=== PATIENT | male | born 1980 | race Hispanic/Latino ===

== ENCOUNTER 2023-11-28 12:35 | Outpatient (CLI) | payer MEDICARE, MEDICAID, SELFPAY ==
--- NOTE | 2023-11-28 12:43 | VDUE_ITS ---
Reason For Study: pre op AVF creation Right Arm Left Arm Right cephalic vein is compressible. Left cephalic vein is compressible. Cephalic Vein at proximal upper arm measures Cephalic Vein at proximal upper arm measures 4.8 x 4.8 mm. 3.2 x 3.1 mm. Cephalic Vein at mid upper arm measures 4.4 x Cephalic Vein at mid upper arm measures 2.6 x 4.5 mm. 2.9 mm. Cephalic Vein distal upper arm measures 4.8 x Cephalic Vein distal upper arm measures 3.4 x 4.7 mm. 3.7 mm. Cephalic Vein proximal forearm measures 3.5 x Cephalic Vein proximal forearm measures 2.0 x 3.7 mm. 2.4 mm. Cephalic Vein at mid forearm measures 2.4 x Cephalic Vein at mid forearm measures 1.2 x 2.5 mm. 1.4 mm. Cephalic Vein at distal forearm measures 3.0 Cephalic Vein at distal forearm measures .13 x 3.1 mm. x .14 mm. Right basilic vein is compressible. Left basilic vein is compressible. Proximal Basilic vein measures 4.1 x 4.4 mm. Proximal Basilic vein measures 3.6 x 4.0 mm. Mid Basilic vein measures 4.2 x 4.5 mm. Mid Basilic vein measures 2.5 x 2.8 mm. Distal Basilic vein measures 1.3 x 1.6 mm. Distal Basilic vein measures .7 x .8 mm. Brachial art 4.7 x 4.6 mm. Brachial art 4.1 x 4.6 mm. Brachial art 63.3 cm/s. Brachial art 77.5 cm/s. Radial art 2.2 x 2.2 mm Radial art 1.6 x 1.6 mm Radial art 69.8 cm/s. Radial art 59.4 cm/s. VL/Dialysis Vein Map PRE-OP BILAT Interpretation Summary Bilateral upper extremity veins patent with measurements above. Bilateral upper extremity arteries patent with normal waveforms and measurement s above. Ordering Physician: Stefania Wayne Referring Physician: Stefania Wayne Performed By: Gilberto Aguilar RVLb ???
== END 2023-11-28 23:59 | disposition home or self-care (01) ==
LOC: CVS 12:39
PROVIDERS: PCP Physician Assistant; Referring Provider Physician Assistant; Visit Provider Physician Assistant
DX: Z01.818 Encounter for other preprocedural examination (principal); Z13.6 Encounter for screening for cardiovascular disorders; Z99.2 Dependence on renal dialysis; N19 Unspecified kidney failure
CPT/HCPCS: 93985

== ENCOUNTER 2024-01-09 07:40 | Day surgery (SDC) | payer MEDICARE, MEDICAID, SELFPAY ==
[2024-01-09] VITALS (9 sets, daily range): BP systolic 105–115; BP diastolic 65–72; PULSE 65–79; RESP 14–18; TEMP 36.3–36.8; O2SAT 96–100; BMI 28.5
[2024-01-09] MEDS: 0.9% Normal Saline (500mL Bag) 500 ML 15 ML IV (08:12)
--- NOTE | 2024-01-09 08:16 | PCM.PRE.AN2 ---
ASA Classification* ASA Classification ASA Classification: 3 Assessment & Plan Anesthesia* Anesthesia Assessment Anesthesia Assessment: Discussed sedation and/or anesthesia options, risks, benefits, and alternatives with patient/parents/legal guardian/POA. Questions invited. The patient/parents/legal guardian/POA seems to understand and agrees to proceed with anesthesia plan. Reviewed the physical assessment, medical history, allergy history and patient home medications list prior to surgery/procedure/anesthetic and documented any changes. Performed airway and anesthesia risk assessments. Anesthesia Type Anesthesia Type: MAC (see written pre anesthesia record for full assessment) Anesthesia Focused Assessment* Temperature: 97.4 F Pulse Rate: 73 Blood Pressure: 113/68 Respiratory Rate: 18 Pulse Ox: 100 Airway Assessment Mouth opens: >3 cm Mallampati Score: II Focused Labs Anesthesia Preop lab: CBC CHEMISTRY COAG Pre-Assessment Diagnosis/Proposed Procedure Planned Operative Procedure(s): (R) Right arm Arteriovenous Fistula,Creation Anesthesia History Anesthesia History - research and evaluation manager: Anesthesia History - research and evaluation manager Hx Hospitalization Yes 12/22/23 14:03 Any Problems With Anesthesia No 12/22/23 14:03 Cholinesterase deficiency No 12/22/23 14:03 You/Your Family Experience No 12/22/23 14:03 fever (hyperthermia) with Relationship Recent Exposure to Contagious No 01/09/24 08:02 Disease Does patient have nerve No 12/22/23 14:03 stimulator Patient instructed to have device shut off --Does patient have Pacemaker No 01/09/24 08:02 or ICD? When Was Last Pacemaker Check QUESTION #4 FULL TEXT: You/Your Family Experience fever (hyperthermia) with Anesthesia Last Oral Intake Last Oral intake: Last Oral Intake NPO since 00:00 01/09/24 08:02 Meds taken in AM with sips of No 01/09/24 08:02 water? Meds patient instructed to take am of surgery PONV PONV - research and evaluation manager: PONV - research and evaluation manager Female No 12/22/23 14:03 HX of Motion Sickness No 12/22/23 14:03 HX of N/V After Surgery No 12/22/23 14:03 Non-Smoker Yes 12/22/23 14:03 Duration of Surgery greater No 12/22/23 14:03 than 60 minutes Number of Risk Factors 1 12/22/23 14:03 PONV Score Low Risk 12/22/23 14:03 Height & Weight Height & Weight: Anesthesia: Height & Weight Height 5 ft 8 in 01/09/24 08:02 Weight: 85.275 kg 01/09/24 08:02 Body Mass Index (BMI) 28.5 01/09/24 08:02 Respiratory Assessment Respiratory Assessment - research and evaluation manager: Respiratory Tract Infection Hx - research and evaluation manager Hx Respiratory Tract Infection No 12/22/23 14:03 STOP Sleep Apnea STOP Sleep Apnea - research and evaluation manager: STOP Sleep Apnea - research and evaluation manager Hx Hypertension Yes: OFF MED PRESENTLY, USES 12/22/23 14:03 PRN Hx Sleep Apnea No 12/22/23 14:03 CPAP BIPAP Do you snore loudly (louder No 12/22/23 14:03 than talking or can be heard Do you often feel tired/ No 12/22/23 14:03 fatigued/ sleepy during daytime? Has anyone observed you stop No 12/22/23 14:03 breathing during sleep? STOP Results Negative 12/22/23 14:03 QUESTION #5 FULL TEXT : Do you snore loudly (louder than talking or can be heard through closed doors)? 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 Specify any problems Hx of Preganancy in last 3 N/A 12/22/23 14:03 Months Nurse Filling Out Transfusion VCHRISTIN 12/22/23 14:03 & Questions: Date: 12/22/23 12/22/23 14:03 Time: 14:04 12/22/23 14:03 Patient unable to answer at this time (ie. confused, unrespo /Reproduction History /Reproductive History - research and evaluation manager: /Reproductive Hx- research and evaluation manager Hx Now Gestational Age (in weeks): EDC: Hx Hx Para Hx Section SAB Active Medications Active Medications: Current Medications Generic Name Dose Route Start Last Admin Trade Name Freq PRN Reason Stop Dose Admin Cefazolin Sodium 2 gm/ Sodium 110 mls @ 150 mls/hr 01/09/24 09:30 Chloride IV 01/09/24 10:13 PREOP ONE Sodium Chloride 500 mls @ 0 mls/hr 01/09/24 08:15 01/09/24 08:12 IV 15 mls/hr .Q0M ROSANGELA Administration KVO PFSH Medical History Wears dentures Wears glasses Wears contact lenses History of renal dialysis History of renal disease Anemia Back pain Dietary restriction Non-smoker History of echocardiogram History of stress test Hypertension Home Medications Medication Instructions Recorded Last Taken Type amlodipine 10 mg tablet 10 mg PO QDAY PRN HIGH BP 10/31/23 01/08/24 History calcitriol 0.5 mcg capsule 0.5 mcg PO QDAY 10/31/23 01/08/24 History multivitamin (Daily Multi-Vitamin 1 tab PO DAILY 10/31/23 01/08/24 History tablet) sevelamer carbonate 800 mg tablet 800 mg PO TID 12/22/23 01/08/24 History Allergy/AdvReac Type Severity Reaction Status Date / Time No Known Allergies Allergy Verified 01/09/24 08:02 Family History Other Cancer Diabetes Social History Smoking Status: Never smoker Review of Systems (Anesthesia) ROS Narrative System reviewed and no additional complaints, except as documented.
--- NOTE | 2024-01-09 09:27 | HP.PCM_ITS ---
HPI - General HPI Narrative LOTUS PINTO, is a 43 M who presents with ESRD currently on dialysis via right IJ catheter. He has had vein mapping that revealed adequate right upper/lower cephalic. 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 so he requests upper arm fistula creation [facility] Medical History Wears dentures Wears glasses Wears contact lenses History of renal dialysis History of renal disease Anemia Back pain Dietary restriction Non-smoker History of echocardiogram History of stress test Hypertension Home Medications Medication Instructions Recorded Last Taken Type amlodipine 10 mg tablet 10 mg PO QDAY PRN HIGH BP 10/31/23 01/08/24 History calcitriol 0.5 mcg capsule 0.5 mcg PO QDAY 10/31/23 01/08/24 History multivitamin (Daily Multi-Vitamin 1 tab PO DAILY 10/31/23 01/08/24 History tablet) sevelamer carbonate 800 mg tablet 800 mg PO TID 12/22/23 01/08/24 History Allergy/AdvReac Type Severity Reaction Status Date / Time No Known Allergies Allergy Verified 01/09/24 08:02 Family History Other Cancer Diabetes Social History Smoking Status: Never smoker ROS Constitutional Constitutional: Denies chills, fever(s), frequent falls, lethargy or weakness Eyes Eyes: Denies blind spots, change in vision or loss of vision ENT HEENT: Denies bleeding gums, hoarseness or sore throat Cardiovascular Cardiovascular: Denies abdominal pain, bluish discoloration of hand/feet, chest pain with activity, claudication, cold extremities, cyanosis, dyspnea on exertion, erythema on extremities, irregular heart rhythm, leg edema, leg ulcers, numbness in extremities or weakness in extremities Respiratory/Chest Respiratory/Chest: Denies cough, excessive phlegm production, shortness of breath at rest, shortness of breath with exertion or wheezing Gastrointestinal Gastrointestinal: Denies anorexia, change in stool character, constipation, diarrhea, melena or rectal bleeding Genitourinary Genitourinary: Denies dysuria or hematuria Musculoskeletal Musculoskeletal: Denies abnormal gait Integumentary Integumentary: Reports other Details: ; Denies erythema, non-healing lesions or wounds Neurologic Neurologic: Denies abnormal speech, focal weakness, headache(s), loss of vision, numbness, paresthesias or sensory deficit Hematologic/Lymphatic Hematologic/Lymphatic: Denies easy bleeding, easy bruising or lymphadenopathy Vital Signs Vital Signs Vital Signs: 01/09/24 08:02 01/09/24 08:02 01/09/24 08:17 Temperature 97.4 F L 97.4 F L Temperature Source Temporal Pulse Rate 73 73 Respiratory Rate 18 18 Respiratory Pattern Normal Blood Pressure 113/68 113/68 Blood Pressure Mean 83 Blood Pressure Source Monitor Blood Pressure Position Semi-Fowlers Blood Pressure Location Right Arm Pulse Ox 100 100 Oxygen Delivery Method Room Air Weight Weight: 188 lb Body Mass Index (BMI) 28.5 Physical Exam Const alert, oriented x3, no apparent distress and healthy appearing General Appearance: cooperative; Negative for combative or lethargic Orientation / Consciousness: awake Exam Limitations: no limitations HEENT Head and Scalp: normocephalic and atraumatic Eyes EOMs intact bilaterally General Eye: normal appearance of both eyes Neck full ROM, no lymphadenopathy, thyroid normal and No no carotid bruits General: trachea midline; Negative for tenderness Thyroid: thyroid normal Resp normal respiratory effort and no use of accessory muscles Effort and Inspection: Negative for labored, stridor or audible wheezes Cardio regular rate and regular rhythm Back/Spine Cervical Spine: cervical ROM normal Extremity full ROM, normal capillary refill and no clubbing, cyanosis or edema Skin no rashes or lesions noted and no wounds Neuro oriented x3, CN's II-XII intact bilaterally, no focal motor deficits and no sensory deficits noted Psych thought process normal, cooperative, affect normal, speech normal and activity/motor behavior normal Assessment & Plan Assessment/Plan (1) ESRD (end stage renal disease) on dialysis: PLAN: -right arm fistula creation
[2024-01-09] MEDS: Cefazolin 2 GM in 0.9% Normal Saline (100mL Bag) 100 ML IV (09:51)
[2024-01-09] MEDS: Heparin Injection (Vial) 5,000 UNIT/ML VIAL 5000 UNIT (09:58)
[2024-01-09] MEDS: Bupivacaine 0.25% 30 ML Vial (10:14)
--- NOTE | 2024-01-09 11:22 | EX.PCM.DISCH ---
Discharge Instructions Diet Discharge Diet: No restrictions Activity Lifting Restrictions: do not lift > 20 lbs with right arm for 14 days Additional Activity Instructions:: do not submerge incision for 14 days Dressing / Incision Call your doctor if your incision/area has: Sudden Increased Bleeding, Increased Pain/ Swelling, Increased Redness and Foul Smelling Discharge Call your doctor if you observe: Fever of 101 or Higher, Coldness, Increased Pain and Numbness or Tingling Remove Dressing in: 2 days Cleanse incision/area with: Soap & Water Follow Up Care Test Results: Test results from this visit will be discussed in further detail at your follow-up appointment, if applicable. Discharge Plan Admission Attending Provider: Stephan Chang Primary Care Provider: Luis Aguilar Instructions Print Language: Italian Discharge Orders/Prescriptions Prescriptions: New oxycodone 5 mg tablet 5 mg PO Q8H PRN (Reason: pain) 3 Days Qty: 9 0RF Continued multivitamin [Daily Multi-Vitamin] Tablet 1 tab PO DAILY amlodipine 10 mg tablet 10 mg PO QDAY PRN (Reason: HIGH BP) calcitriol 0.5 mcg capsule 0.5 mcg PO QDAY sevelamer carbonate 800 mg tablet 800 mg PO TID Patient Comments: TAKE ONE TABLET BY MOUTH WITH MEALS Referrals / Follow Up: Luis Aguilar PA [Primary Care Provider] - Disposition Disposition (needs filled in before D/C Order can be placed): Home, Self Care
--- NOTE | 2024-01-09 11:25 | PCM.OPRPT ---
Report of Operation Date of Procedure: 01/09/24 Pre-Operative Diagnosis: ESRD Post-Operative Diagnosis: Same Surgery/Procedure Performed:: Right brach-cephalic fistula creation Surgeon: Stephan Chang Type of Anesthesia: Local and MAC Estimated Blood Loss (mL): 15 Description of Procedure: HPI: Patient is a 43-year-old male with end-stage renal disease currently on dialysis. He has had vein mapping which reveals adequate right upper arm cephalic vein. He presents now for fistula creation. Description of procedure: Upon obtaining form consent and verification correct patient procedure site patient taken to the operating where he was positioned prepped and draped in usual sterile fashion. Timeouts performed and sedation administered by anesthesia. Ultrasound was used to evaluate the cephalic vein and its proximity to the brachial artery. Skin overlying the vessels distal to the antecubital crease was anesthetized with 1% lidocaine and transverse incision made. Bovie electrocautery was then used to dissect down through subcutaneous tissue and self-retaining retractors put in position. Further dissection was carried down until the cubital branches were identified. Sharp dissection then used to dissect free proximal and distal on the medial and lateral cubital branches. The 2 vessels actually had independent inflow with a short bridging vein between them so in order to maintain the medial cubital branch and basilic has potential fistula creation for the future we clamped and divided the bridging vein and oversewed each side with 6-0 Prolene in running fashion. After playing suture line clamps removed and satisfactory stasis was noted. Further dissection was then carried down following the lateral branch along the machine maintenance repairer down to the brachial vein. Sharp dissection used to dissect free the brachial artery proximal and distal with care taken to identify and protect adjacent nerve and vein structures. A writing was replaced vessel proximal and distal and the patient was then heparinized with circulate for 3 minutes. The lateral cubital branch and machine maintenance repairer were then marked to maintain orientation and then ligated and divided just above the confluence with the deep system. The vessel was then dilated to 3 and half millimeters and flushed with heparinized saline. The brachial artery was then occluded with Vesseloops and longitudinal arteriotomy created 11 blade extended with Rosenberg scissors. Anastomosis was then performed using a 6-0 Prolene running. Prior to completing the suture line vessels were backbled and after completing the suture line clamps removed and satisfactory stasis was noted. There is a palpable thrill in the fistula and palpable radial pulse at the wrist. Heparin was then reversed with protamine and the incision inspected for hemostasis. Was then closed with 3-0 Vicryl, 4 Monocryl and Dermabond for the skin. Patient was then awake from the anesthetic and taken the recovery room with anticipated discharge to home.
--- NOTE | 2024-01-09 12:24 | PCM.POSTANE2 ---
Anesthesia Postop Eval I Sum Anesthesia Postop Eval I Summary Anesthesia Postop Eval I Summary: Anesthesia Postop Eval I: Assessment Summary Airway patent Spontaneous unlabored respirations Mental status nausea Vomiting Anesthesia Postop Eval I: Fluid Summary Crystalloid volume administer (ml) Colloids volume administered ( ml) Blood Product volume administered (ml) Total IV fluid infused Anesthesia Postop Eval I: Summary Notes Anesthesia Complication Anesthesia Complication Comment: Post-operative progress note Anesthesia: Postop Eval II Evaluation Mental status: Awake and Calm Pain Level: 1 nausea: No Vomiting: No Complications Anesthesia Complication: No
--- NOTE | 2024-01-09 13:51 | PCM.POST.ANE ---
Anesthesia: Postop Eval I Current Vital Signs Temperature: 97.6 F Pulse Rate: 65 Blood Pressure: 105/65 Respiratory Rate: 14 Pulse Ox: 96 Oxygen Delivery Method: Room Air Assessment Airway patent: Yes Spontaneous unlabored respirations: Yes Mental status: Awake and Calm nausea: No Vomiting: No Anesthesia Complication: No Fluid Hydration Crystalloid volume administer (ml): 400 Total IV fluid infused: 400 Progress Note Anesthesia document: Postop Eval 1 completed: Yes
== END 2024-01-09 13:04 | disposition home or self-care (01) ==
LOC: SDC 07:46 → AC 07:50
PROVIDERS: PCP Physician Assistant; Referring Provider Surgery Trauma Surgery; Visit Provider Surgery Trauma Surgery
PROC: (CPT 36821; principal; 2024-01-09 09:15)
DX: Z49.01 Encounter for fitting and adjustment of extracorporeal dialysis catheter (principal); I12.0 Hypertensive chronic kidney disease with stage 5 chronic kidney disease or end stage renal disease; N18.6 End stage renal disease; Z79.899 Other long term (current) drug therapy
CPT/HCPCS: 36821; 01844; A4648; J2405

== ENCOUNTER → 2024-04-30 | Outpatient (CLI) | payer MEDICARE, MEDICAID, SELFPAY ==
--- NOTE | 2024-04-30 08:32 | AVDS_ITS ---
Reason For Study: Difficulty accessing RIGHT Inflow, 249/137.3 cm/sec. Inflow, 2119 ml/min. Prox anastamosis, 416/257.6 cm/sec. Prox anastamosis, 1471 ml/min. Prox graft, 205.8/95.9 cm/sec. Prox graft, 3670 ml/min. Mid graft, 157.1/86.1 cm/sec. Mid graft, 3289 ml/min. Distal graft, 116.3/68.8 cm/sec. Distal graft, 1308 ml/min. Outflow, 185.7/92.4 cm/sec. Outflow, 2597 ml/min. Branch noted at prox/mid graft, with a velocity of 139/66.4 cm/sec and a volume flow of 2830 ml/min. VL/AV Fistula/Dialysis Graft Scan Interpretation Summary Patent right upper extremity fistula with adequate flow volume, caliber, and de pth. Mid fistula branch with parallel/duplicated section. Ordering Physician: Stefania Wayne Referring Physician: Luis Aguilar Performed By: Liza Paz RVT
== END | disposition home or self-care (01) ==
LOC: CVS 08:32
PROVIDERS: PCP Physician Assistant; Referring Provider Physician Assistant; Visit Provider Physician Assistant
DX: T82.590A Other mechanical complication of surgically created arteriovenous fistula, initial encounter (principal); I77.0 Arteriovenous fistula, acquired; Y83.2 Surgical operation with anastomosis, bypass or graft as the cause of abnormal reaction of the patient, or of later complication, without mention of misadventure at the time of the procedure
CPT/HCPCS: 93990

== ENCOUNTER 2024-05-21 07:42 | Day surgery (SDC) | payer MEDICARE, MEDICAID, BC, SELFPAY ==
[2024-05-21] VITALS (8 sets, daily range): BP systolic 84–126; BP diastolic 49–74; PULSE 68–82; RESP 16; TEMP 36.2–37.1; O2SAT 98–100; BMI 28.4
[2024-05-21 08:35] LABS: Hematocrit 36.5 % (40-54); Hemoglobin 12.1 g/dL (13.0-16.5); Mean Corp Hgb Conc 33.2 g/dL (32-36); Mean Corpuscular Hgb 32.7 pg (27.0-32.0); Mean Corpuscular Volume 98.6 fL (80-94); Mean Platelet Vol. 9.1 fl (6.2-12.0); Platelet Count 200 K/mm3 (150-450); RBC Distribution Width CV 13.9 % (11.6-14.6); RBC Distribution Width SD 50.6 fl (35.1-43.9)
--- NOTE | 2024-05-21 08:35 | HP.PCM_ITS ---
HPI - General HPI Narrative LOTUS PINTO, is a 43 M who presents with a right upper extremity fistula that they have failed to successfully cannulate. He had a duplex that revealed adequate caliber but with a proximal branch that is significant in size. There is also a segment that appears to have parallel paired vein which may be a hindrance to access. PENDING SALE TO [facility] Medical History Wears dentures Wears glasses Wears contact lenses History of renal dialysis History of renal disease Anemia Back pain Dietary restriction Non-smoker History of echocardiogram History of stress test Hypertension Home Medications ?Medication ?Instructions ?Recorded ?Last Taken ?Type amlodipine 10 mg tablet 10 mg PO QDAY PRN HIGH BP 10/31/23 01/08/24 History multivitamin (Daily Multi-Vitamin 1 tab PO DAILY 10/31/23 01/08/24 History tablet) sevelamer carbonate 800 mg tablet 800 mg PO TID 12/22/23 01/08/24 History Allergy/AdvReac Type Severity Reaction Status Date / Time No Known Allergies Allergy Verified 05/21/24 08:16 Family History Other Cancer Diabetes Surgical History Hx of surgical procedure Social History Smoking Status: Never smoker ROS Constitutional Constitutional: Denies chills, fever(s), frequent falls, lethargy or weakness Eyes Eyes: Denies blind spots, change in vision or loss of vision ENT HEENT: Denies bleeding gums, hoarseness or sore throat Cardiovascular Cardiovascular: Denies abdominal pain, bluish discoloration of hand/feet, chest pain with activity, claudication, cold extremities, cyanosis, dyspnea on exertion, erythema on extremities, irregular heart rhythm, leg edema, leg ulcers, numbness in extremities or weakness in extremities Respiratory/Chest Respiratory/Chest: Denies cough, excessive phlegm production, shortness of breath at rest, shortness of breath with exertion or wheezing Gastrointestinal Gastrointestinal: Denies anorexia, change in stool character, constipation, diarrhea, melena or rectal bleeding Genitourinary Genitourinary: Denies dysuria or hematuria Musculoskeletal Musculoskeletal: Denies abnormal gait Integumentary Integumentary: Reports other Details: ; Denies erythema, non-healing lesions or wounds Neurologic Neurologic: Denies abnormal speech, focal weakness, headache(s), loss of vision, numbness, paresthesias or sensory deficit Hematologic/Lymphatic Hematologic/Lymphatic: Denies easy bleeding, easy bruising or lymphadenopathy Vital Signs Vital Signs Vital Signs: 05/21/24 08:17 05/21/24 08:17 Temperature 98.7 F Temperature Source Temporal Pulse Rate 76 Respiratory Rate 16 Respiratory Pattern Normal Blood Pressure 126/74 H Blood Pressure Mean 91 Blood Pressure Source Monitor Blood Pressure Position Semi-Fowlers Blood Pressure Location Left Arm Pulse Ox 100 Oxygen Delivery Method Room Air Weight Weight: 186 lb 15.232 oz Body Mass Index (BMI) 28.4 Physical Exam Const alert, oriented x3, no apparent distress and healthy appearing General Appearance: cooperative; Negative for combative or lethargic Orientation / Consciousness: awake Exam Limitations: no limitations HEENT Head and Scalp: normocephalic and atraumatic Eyes EOMs intact bilaterally General Eye: normal appearance of both eyes Neck full ROM General: trachea midline Resp normal respiratory effort and no use of accessory muscles Effort and Inspection: Negative for labored, stridor or audible wheezes Cardio regular rate and regular rhythm Peripheral Pulses: brachial pulses present Back/Spine Cervical Spine: cervical ROM normal Extremity full ROM, normal capillary refill and no clubbing, cyanosis or edema Skin no rashes or lesions noted and no wounds Neuro oriented x3, CN's II-XII intact bilaterally, no focal motor deficits and no sensory deficits noted Psych thought process normal, cooperative, affect normal, speech normal and activity/motor behavior normal Results Lab / Micro Data 05/21/24 08:25 05/21/24 08:25 Assessment & Plan Assessment/Plan (1) Dialysis AV fistula malfunction: QUALIFIERS: Encounter type: subsequent encounter Qualified Code(s): T82.590D - Other mechanical complication of surgically created arteriovenous fistula, subsequent encounter PLAN: -plan ligate branch, assess dual vein segment and possible ligate smaller vein
--- NOTE | 2024-05-21 08:52 | PCM.PRE.AN2 ---
ASA Classification* ASA Classification ASA Classification: 3 Assessment & Plan Anesthesia* Anesthesia Assessment Anesthesia Assessment: Discussed sedation and/or anesthesia options, risks, benefits, and alternatives with patient/parents/legal guardian/POA. Questions invited. The patient/parents/legal guardian/POA seems to understand and agrees to proceed with anesthesia plan. Reviewed the physical assessment, medical history, allergy history and patient home medications list prior to surgery/procedure/anesthetic and documented any changes. Performed airway and anesthesia risk assessments. Anesthesia Type Anesthesia Type: MAC (With general backup) History Source History Obtained from:: Patient and Chart Anesthesia Focused Assessment* Temperature: 98.7 F Pulse Rate: 76 Blood Pressure: 126/74 Respiratory Rate: 16 Pulse Ox: 100 Oxygen Delivery Method: Room Air Airway Assessment Mouth opens: >3 cm Mallampati Score: II Teeth Condition: Dentures (Patient has upper and lower dentures.) Neck Range of motion (ROM): Full ROM Focused Labs Anesthesia Preop lab: CBC WBC 6.0 K/mm3 (4.4-11.0) 05/21/24 08:25 RBC 3.70 M/mm3 (4.6-6.2) L 05/21/24 08:25 Hgb 12.1 g/dL (13.0-16.5) L 05/21/24 08:25 Hct 36.5 % (40-54) L 05/21/24 08:25 Plt Count 200 K/mm3 (150-450) 05/21/24 08:25 CHEMISTRY Potassium Pending 05/21/24 08:25 Sodium Pending 05/21/24 08:25 BUN Pending 05/21/24 08:25 Creatinine Pending 05/21/24 08:25 Glucose Pending 05/21/24 08:25 COAG Pre-Assessment Diagnosis/Proposed Procedure Planned Operative Procedure(s): (R) right upper extremity Arteriovenous Fistula branch ligation Anesthesia History 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 When Was Last Pacemaker Check QUESTION #4 FULL TEXT: You/Your Family Experience fever (hyperthermia) with Anesthesia Last Oral Intake Last Oral intake: Last Oral Intake NPO since 20:30 05/21/24 08:17 Meds taken in AM with sips of water? Meds patient instructed to take am of surgery PONV PONV - flying squad salesperson: PONV - flying squad salesperson Female No 05/14/24 14:03 HX of Motion Sickness No 05/14/24 14:03 HX of N/V After Surgery No 05/14/24 14:03 Non-Smoker Yes 05/14/24 14:03 Duration of Surgery greater Yes 05/14/24 14:03 than 60 minutes Number of Risk Factors 2 05/14/24 14:03 PONV Score Moderate Risk 05/14/24 14:03 Height & Weight Height & Weight: Anesthesia: Height & Weight Height 5 ft 8 in 05/21/24 08:17 Weight: 84.8 kg 05/21/24 08:17 Body Mass Index (BMI) 28.4 05/21/24 08:17 Respiratory Assessment Respiratory Assessment - flying squad salesperson: Respiratory Tract Infection Hx - flying squad salesperson Hx Respiratory Tract Infection No 05/14/24 14:03 STOP Sleep Apnea STOP Sleep Apnea - flying squad salesperson: STOP Sleep Apnea - flying squad salesperson Hx Hypertension Yes: OFF MED PRESENTLY, USES 05/14/24 14:03 PRN Hx Sleep Apnea No 05/14/24 14:03 CPAP BIPAP Do you snore loudly (louder No 05/14/24 14:03 than talking or can be heard Do you often feel tired/ No 05/14/24 14:03 fatigued/ sleepy during daytime? Has anyone observed you stop No 05/14/24 14:03 breathing during sleep? STOP Results Negative 05/14/24 14:03 QUESTION #5 FULL TEXT : Do you snore loudly (louder than talking or can be heard through closed doors)? 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 Specify any problems Hx of Preganancy in last 3 N/A 05/14/24 14:03 Months Nurse Filling Out Transfusion VCHRISTIN 05/14/24 14:03 & Questions: Date: 05/14/24 05/14/24 14:03 Time: 14:04 05/14/24 14:03 Patient unable to answer at this time (ie. confused, unrespo /Reproduction History /Reproductive History - flying squad salesperson: /Reproductive Hx- flying squad salesperson Hx Now Gestational Age (in weeks): EDC: Hx Hx Para Hx Section SAB Active Medications Active Medications: Current Medications Generic Name Dose Route Start Last Admin Trade Name Freq PRN Reason Stop Dose Admin Cefazolin Sodium 2 gm/ N/A 20 mls @ 400 mls/hr 05/21/24 09:55 IV 05/21/24 09:57 X1 [facility] Medical History Wears dentures Wears glasses Wears contact lenses History of renal dialysis History of renal disease Anemia Back pain Dietary restriction Non-smoker History of echocardiogram History of stress test Hypertension Home Medications ?Medication ?Instructions ?Recorded ?Last Taken ?Type amlodipine 10 mg tablet 10 mg PO QDAY PRN HIGH BP 10/31/23 01/08/24 History multivitamin (Daily Multi-Vitamin 1 tab PO DAILY 10/31/23 01/08/24 History tablet) sevelamer carbonate 800 mg tablet 800 mg PO TID 12/22/23 01/08/24 History Allergy/AdvReac Type Severity Reaction Status Date / Time No Known Allergies Allergy Verified 05/21/24 08:16 Family History Other Cancer Diabetes Surgical History Hx of surgical procedure Social History Smoking Status: Never smoker Review of Systems (Anesthesia) ROS Narrative System reviewed and no additional complaints, except as documented.
[2024-05-21] MEDS: Cefazolin 2 GM in Syringe IV (09:08)
[2024-05-21 09:17] LABS: Anion Gap 9 (5-15); BUN 41 mg/dL (7-18); BUN/Creat Ratio 4.9 RATIO (10-20); Calcium,Total 9.8 mg/dL (8.5-10.1); Chloride 98 mmol/L (98-107); Creatinine, Serum 8.44 mg/dL (0.70-1.30); EST Glomerular Filtration Rate 7 mL/min (>60); Est Glom Filt Rate - Afr Amer 9 mL/min (>60); Estimated Creatinine Clearance 12.09 ml/min; Glucose 99 mg/dL (74-106); Potassium 4.4 mmol/L (3.5-5.1); Sodium Level 137 mmol/L (136-145)
[2024-05-21] MEDS: Bupivacaine 0.25% 30 ML Vial (09:21)
[2024-05-21] MEDS: Lidocaine 1% (30 ml sdv) 30 ML Vial (09:21)
--- NOTE | 2024-05-21 09:32 | EX.PCM.DISCH ---
Discharge Instructions Diet Discharge Diet: No restrictions Activity Discharge Activity: Return to Normal Activity Additional Activity Instructions:: do not submerge incision for 2 weeks Dressing / Incision Call your doctor if your incision/area has: Sudden Increased Bleeding, Increased Pain/ Swelling, Increased Redness and Foul Smelling Discharge Call your doctor if you observe: Fever of 101 or Higher Remove Dressing in: 2 days Cleanse incision/area with: Soap & Water Follow Up Care Test Results: Test results from this visit will be discussed in further detail at your follow-up appointment, if applicable. Discharge Plan Admission Attending Provider: Stephan Chang Primary Care Provider: Luis Aguilar Instructions Print Language: [place] Islander Discharge Orders/Prescriptions Prescriptions: New oxycodone 5 mg tablet 5 mg PO BID PRN (Reason: pain) 1 Days Qty: 3 0RF Continued multivitamin [Daily Multi-Vitamin] Tablet 1 tab PO DAILY amlodipine 10 mg tablet 10 mg PO QDAY PRN (Reason: HIGH BP) sevelamer carbonate 800 mg tablet 800 mg PO TID Patient Comments: TAKE ONE TABLET BY MOUTH WITH MEALS Referrals / Follow Up: Luis Aguilar PA [Primary Care Provider] - Disposition Disposition (needs filled in before D/C Order can be placed): Home, Self Care
--- NOTE | 2024-05-21 09:35 | PCM.OPRPT ---
Operative Report (Standard) Operative Information Date of Procedure: 05/21/24 Pre-Operative Diagnosis: malfunction right upper arm AV fistula Post-Operative Diagnosis: same Surgery/Procedure Performed: ligation fistula branch operations and maintenance technician: Yes Body Recall Instructor: Corrina Harley Tasks completed by assistant strength coach: Opening, Closing, Opening & closing, Hemostasis: Tie and Retracting Type of Anesthesia: Local MAC, Local and MAC RN Documented Start/Stop Times: Operation Date: 05/21/24 09:30 Case Time Into Pre-Op 05/21/24 07:49 Out of Pre-Op 05/21/24 08:56 Anesthesia Start 05/21/24 08:59 Into Room 05/21/24 08:59 Procedure Start 05/21/24 09:21 Procedure End 05/21/24 09:38 Anesthesia End 05/21/24 09:45 Out of Room 05/21/24 09:45 Into Recovery 05/21/24 09:48 Into Phase II Recovery 05/21/24 10:06 Out of Recovery 05/21/24 10:06 Out of Phase II 05/21/24 10:29 Procedure Start Time: 09:20 Procedure Stop Time: 09:40 Select all DRAINS/GRAFTS/IMPLANTS that apply: None Estimated Blood Loss: 1 Specimen collected: No Description of surgery: HPI: Patient is a 43-year-old male with end-stage renal disease currently on dialysis. He previously had a right upper extremity cephalic fistula created and there is been difficulty reliably cannulating. He had a duplex which revealed satisfactory caliber and flow volume however did reveal a very large branch proximally that was potentially diverting some of the flow away from the main fistula and hindering maturation. He is taken now for ligation of the branch and to assess with ultrasound as it was noted that there was a area of duplicate vein and parallel to the main outflow fistula. Description of procedure: Upon today informed consent and verification correct patient procedure site the patient was taken the operating where he was positioned prepped and draped in usual sterile fashion. Time was performed and moderate sedation administered by anesthesia. Ultrasound was used to evaluate the fistula and locate the sizable branch. The cephalic vein in the upper arm just superior to the antecubital crease had a segment of approximately 5 cm long where there were repaired vessel stacked 1 over the other both of significant caliber. Given the size of each of these branches that ligating 1 or the other would potentially compromise the fistula patency and also that because they are on overlying the other that likely would not create any issues with cannulation. Skin overlying the branch was anesthetized 1% lidocaine and oblique incision made with a 15 blade. Both electrocautery was dissect down through subcutaneous tissue and then sharp dissection utilized to dissect the branch proximal and distal. A right angle was used to place silk ties which were then used to ligate the vessel. The fistula continue to have palpable with thrill throughout and there is no longer palpable thrill in the branch that had been ligated. The incision was then closed with 4 Monocryl and Dermabond after which the patient was awake from anesthesia and taken the recovery room with plan discharged to home Surgical Findings: see above Complications Complications: No
--- NOTE | 2024-05-21 09:48 | PCM.POST.ANE ---
Anesthesia: Postop Eval I Current Vital Signs Temperature: 97.4 F Pulse Rate: 82 Blood Pressure: 84/49 Respiratory Rate: 16 Pulse Ox: 100 Oxygen Delivery Method: Room Air Assessment Airway patent: Yes Spontaneous unlabored respirations: Yes Mental status: Awake and Calm nausea: No Vomiting: No Anesthesia Complication: No Fluid Hydration Crystalloid volume administer (ml): 10 Total IV fluid infused: 10 Progress Note Anesthesia document: Postop Eval 1 completed: Yes
--- NOTE | 2024-05-21 20:12 | POSTOPAN2_ITS ---
Anesthesia Postop Eval I Sum Postop Eval Completion status Anesthesia document: Postop Eval 1 completed: Yes Anesthesia Postop Eval I Summary Anesthesia Postop Eval I Summary: Anesthesia Postop Eval I: Assessment Summary Airway patent Yes 05/21/24 09:49 HAND SAMPLE [email or web address].[email or web address] Spontaneous unlabored Yes 05/21/24 09:49 HAND SAMPLE [email or web address].[email or web address] respirations Mental status Awake,Calm 05/21/24 09:49 HAND SAMPLE [email or web address].GDOTT nausea No 05/21/24 09:49 HAND SAMPLE MAKER.GDOTT Vomiting No 05/21/24 09:49 HAND SAMPLE MAKER.GDOTT Anesthesia Postop Eval I: Fluid Summary Crystalloid volume administer 10 05/21/24 09:49 HAND SAMPLE MAKER.GDOTT (ml) Colloids volume administered ( ml) Blood Product volume administered (ml) Total IV fluid infused 10 05/21/24 09:49 HAND SAMPLE MAKER.GDOTT Anesthesia Postop Eval I: Summary Notes Anesthesia Complication No 05/21/24 09:49 HAND SAMPLE [email or web address].GDOTT Anesthesia Complication Comment: Post-operative progress note Anesthesia: Postop Eval II Evaluation Mental status: Awake and Calm Pain Level: 1 nausea: No Vomiting: No Complications Anesthesia Complication: No
--- NOTE | 2024-05-21 20:12 | PCM.POSTANE2 ---
Anesthesia Postop Eval I Sum Postop Eval Completion status Anesthesia document: Postop Eval 1 completed: Yes Anesthesia Postop Eval I Summary Anesthesia Postop Eval I Summary: Anesthesia Postop Eval I: Assessment Summary Airway patent Yes 05/21/24 09:49 DIRECTOR OF PATIENT SAFETY.[email or web address] Spontaneous unlabored Yes 05/21/24 09:49 DIRECTOR OF PATIENT SAFETY.GDOTT respirations Mental status Awake,Calm 05/21/24 09:49 DIRECTOR OF PATIENT SAFETY.GDOTT nausea No 05/21/24 09:49 DIRECTOR OF PATIENT SAFETY.GDOTT Vomiting No 05/21/24 09:49 DIRECTOR OF PATIENT SAFETY.GDOTT Anesthesia Postop Eval I: Fluid Summary Crystalloid volume administer 10 05/21/24 09:49 DIRECTOR OF PATIENT SAFETY.GDOTT (ml) Colloids volume administered ( ml) Blood Product volume administered (ml) Total IV fluid infused 10 05/21/24 09:49 DIRECTOR OF PATIENT SAFETY.GDOTT Anesthesia Postop Eval I: Summary Notes Anesthesia Complication No 05/21/24 09:49 DIRECTOR OF PATIENT SAFETY.GDOTT Anesthesia Complication Comment: Post-operative progress note Anesthesia: Postop Eval II Evaluation Mental status: Awake and Calm Pain Level: 1 nausea: No Vomiting: No Complications Anesthesia Complication: No
== END 2024-05-21 10:29 | disposition home or self-care (01) ==
LOC: SDC 07:46 → AC 07:47
PROVIDERS: PCP Physician Assistant; Referring Provider Surgery Trauma Surgery; Visit Provider Surgery Trauma Surgery
PROC: (CPT 37607; principal; 2024-05-21 09:15)
DX: T82.590A Other mechanical complication of surgically created arteriovenous fistula, initial encounter (principal); I12.0 Hypertensive chronic kidney disease with stage 5 chronic kidney disease or end stage renal disease; N18.6 End stage renal disease; Z99.2 Dependence on renal dialysis; Z79.899 Other long term (current) drug therapy
CPT/HCPCS: 37607; 01770; 80048; 85027; A4648; A4216; J2405

== ENCOUNTER 2024-07-04 08:19 | Day surgery (SDC) | payer BC, MEDICARE, MEDICAID, SELFPAY ==
[2024-07-03 09:44] VITALS: BMI 28.8
--- NOTE | 2024-07-04 10:51 | OP.PCM_ITS ---
Operative Report (Standard) Operative Information Date of Procedure: 07/04/24 Pre-Operative Diagnosis: End-stage renal disease, tunneled dialysis catheter no longer in use Post-Operative Diagnosis: Same Surgery/Procedure Performed: Removal of right IJ tunneled catheter civil geotechnical engineer: No Type of Anesthesia: Local and Sedation,Conscious Procedure Start Time: 10:00 Procedure Stop Time: 10:20 Select all DRAINS/GRAFTS/IMPLANTS that apply: None Estimated Blood Loss: 4 Specimen collected: No Description of surgery: HPI: Patient is a 43-year-old male with end-stage renal disease currently on dialysis via a right upper extremity AV fistula. He has a prior right tunneled IJ dialysis catheter which is no longer in use. He presents now for catheter removal. Description of procedure: Upon obtaining form consent and verification correct patient procedure and site the patient was taken the Environmental Solutions Engineer where he was positioned prepped and draped in usual sterile fashion. Timeouts performed conscious sedation administered with Versed and fentanyl. Skin surrounding the tunnel from the skin exit site to the cuff was anesthetized with 1% lidocaine. Counterincision was made over the catheter and the midpoint and combination of blunt and sharp dissection used to dissect down to level the catheter. Soft tissue surrounding the catheter was mobilized with sharp and blunt dissection. Next the tunnel was bluntly dissected from the skin exit site and the cuff retracted out through the skin of the catheter exit site in order to facilitate blunt and sharp dissection of the adjacent tissue attachments. Catheter was then withdrawn and manner pressure held over the vein access site for 5 minutes until hemostasis was obtained. The counterincision was closed with 4-0 Monocryl and Dermabond. Dry sterile dressings and applied and the patient taken to the recovery area with plan discharged home. Surgical Findings: See above Complications Complications: No
== END 2024-07-04 11:10 | disposition home or self-care (01) ==
PROVIDERS: PCP Physician Assistant; Referring Provider Surgery Trauma Surgery; Visit Provider Surgery Trauma Surgery
DX: Z45.2 Encounter for adjustment and management of vascular access device (principal); N18.6 End stage renal disease; I12.0 Hypertensive chronic kidney disease with stage 5 chronic kidney disease or end stage renal disease; Z99.2 Dependence on renal dialysis
CPT/HCPCS: 36589; 99152; C1894; C1769